=== PATIENT | male | born 1995 | race African-American/Black ===

== ENCOUNTER → 2017-04-19 | Outpatient (CLI) | payer BC, OTHER | LOC: COL.RAD 13:15 | DX: Q28.3 Other malformations of cerebral vessels (principal); R45.86 Emotional lability ==

== ENCOUNTER → 2018-04-25 | Outpatient (CLI) | payer BC, OTHER | LOC: COL.RAD 09:40 | DX: S70.11XA Contusion of right thigh, initial encounter (principal); X58.XXXA Exposure to other specified factors, initial encounter; Y93.61 Activity, american tackle football ==